=== PATIENT | female | born 1990 | race Caucasian/White ===

== ENCOUNTER 2016-09-28 08:20 | Emergency (ER) | payer OTHER ==
[~2016-09-28] VITALS: Ht 167.6 cm; Wt 76.2 kg
[~2016-09-28 08:20] MED LIST: NORTREL
[2016-09-28 08:49] VITALS: BP 123/91
== END 2016-09-28 09:22 | disposition home or self-care (01) ==
LOC: ER 08:20
DX: L23.9 Allergic contact dermatitis, unspecified cause (principal); Z88.0 Allergy status to penicillin